=== PATIENT | male | born 1950 | race Hispanic/Latino ===

== ENCOUNTER 2018-10-11 11:38 | Emergency (ER) | payer MEDICARE, OTHER ==
[2018-10-11 11:48] VITALS: RESP 20
--- NOTE | 2018-10-11 12:12 | ED PDOC ---
HPI: SOB/CHF/COPD Time Seen by Provider: 10/11/18 12:00 Chief Complaint (Nursing): Shortness Of Breath History Per: Patient Onset/Duration Of Symptoms: Other (2-3 weeks) Current Symptoms Are (Timing): Still Present Current Respiratory Medications: See Home Med List Severity: Mild Associated Symptoms: Productive Cough. denies: Fever, Chest Pain, Ankle/Leg Swelling Additional Complaint(s): SOB, unresponsive to home asthma meds including inhalers and steroids x 2-3 weeks. Pt had procedure done to left knee approx 3 weeks ago but denies calf pain or swelling. Has scant nonproductive cough but denies fever or chills Past Medical History Vital Signs: Last Vital Signs Temp 98.8 F 10/11/18 11:45 Pulse 65 10/11/18 11:45 Resp 20 10/11/18 11:45 BP 198/104 H 10/11/18 11:45 Pulse Ox 96 10/11/18 11:45 - Medical History PMH: Asthma - Family History Family History: States: Unknown Family Hx - Allergies Allergies/Adverse Reactions: Allergies Allergy/AdvReac Type Severity Reaction Status Date / Time No Known Allergies Allergy Verified 10/11/18 11:49 Review of Systems ROS Statement: Except As Marked, All Systems Reviewed And Found Negative Constitutional: Negative for: Fever Cardiovascular: Negative for: Chest Pain Respiratory: Positive for: Cough, Shortness of Breath Musculoskeletal: Negative for: Leg Pain Physical Exam - Reviewed Nursing Documentation Reviewed: Yes Vital Signs Reviewed: Yes - Physical Exam Appears: Positive for: Non-toxic, No Acute Distress Head Exam: Positive for: ATRAUMATIC, NORMAL INSPECTION, NORMOCEPHALIC Skin: Positive for: Normal Color, Warm, DRY Eye Exam: Positive for: EOMI, Normal appearance, PERRL ENT: Positive for: Normal ENT Inspection Neck: Positive for: Normal, Painless ROM Cardiovascular/Chest: Positive for: Regular Rate, Rhythm Respiratory: Positive for: Rhonchi, Wheezing (Mild exp wheezing left base). Negative for: Respiratory Distress Gastrointestinal/Abdominal: Positive for: Normal Exam, Soft Back: Positive for: Normal Inspection Extremity: Positive for: Normal ROM. Negative for: Calf Tenderness, Swelling Neurologic/Psych: Positive for: Alert, Oriented - Laboratory Results Result Diagrams: 10/11/18 12:45 10/11/18 12:45 - ECG O2 Sat by Pulse Oximetry: 96 Disposition - Clinical Impression Clinical Impression: Asthma exacerbation - Patient ED Disposition Is Patient to be Admitted: No Discussed With Dr.: Noah Berry - Disposition Disposition: Left W/O Treatment Disposition Time: 17:00 Condition: FAIR Forms: [facility] (Chinese)
[2018-10-11] MEDS ORDERED: Albuterol-Ipratrop 3 mg / 0.5 (3 ml) UD IH STA (12:13)
[2018-10-11] MEDS ORDERED: Albuterol-Ipratrop 3 mg / 0.5 (3 ml) UD ONE (12:36)
--- NOTE | 2018-10-11 12:39 | RAD ---
Date of service: 10/11/2018 HISTORY: SOB COMPARISON: 10/03/2018 TECHNIQUE: Chest PA and lateral FINDINGS: LUNGS: No active pulmonary disease. PLEURA: No significant pleural effusion identified. No pneumothorax apparent. CARDIOVASCULAR: There is presence of aortic atherosclerotic calcification on x-ray. Similar mild cardiomegaly no pulmonary vascular congestion. OSSEOUS STRUCTURES: Old right healed rib fractures. Thoracic spondylosis. VISUALIZED UPPER ABDOMEN: Normal. OTHER FINDINGS: None. IMPRESSION: No active disease. No interval pathology noted.
[2018-10-11 13:00] LABS: BASO % 0.1 % (0.0-2.0); EOS % 0.1 % (0.0-4.0); HEMOGLOBIN 14.5 g/dL (12.0-18.0); LYMPH # 1.1 K/uL (1.0-4.3); MEAN CELL VOLUME 92.3 fl (80.0-94.0); MEAN CORPUSCULAR HEMOGLOBIN 29.4 pg (27.0-31.0); MEAN CORPUSCULAR HGB CONC 31.8 g/dL (33.0-37.0); MEAN PLATELET VOLUME 7.7 fl (7.2-11.7); MONO # 0.8 K/uL (0.0-0.8); MONO % 5.5 % (0.0-10.0); NEUT # 11.9 K/uL (1.8-7.0); NEUT % 86.3 % (50.0-75.0); NRBC % 0.1 % (0.0-0.0); PLATELET COUNT 313 K/uL (130-400); RBC 4.94 Mil/uL (4.40-5.90); RED CELL DISTRIBUTION WIDTH 14.9 % (11.5-14.5); WHITE BLOOD COUNT 13.8 K/uL (4.8-10.8)
[2018-10-11 13:22] LABS: ALB/GLOB RATIO 1.3 (1.0-2.1); ALT/SGPT 67 U/L (21-72); AST/SGOT 49 U/L (17-59); BLOOD UREA NITROGEN 18 mg/dl (9-20); CALCIUM 9.2 mg/dL (8.4-10.2); GFR NON-AFRICAN AMERICAN > 60
[2018-10-11 13:59] VITALS: O2SAT 96
[2018-10-11 14:02] LABS: LYMPHOCYTE 8 % (20-50); MONOCYTE 7 % (0-10); NEUTROPHIL 84 % (42-75); REACTIVE LYMPHOCYTES 1 % (0-0); TOTAL CELLS COUNTED 100
[2018-10-11 14:03] LABS: ANISOCYTOSIS SLIGHT; PLATELET CLUMPS PRESENT; PLATELET ESTIMATE NORMAL (NORMAL)
[2018-10-11] MEDS ORDERED: Iodixanol 320 MG/ML 100 ML BOTTLE IV ONE (15:06)
[2018-10-11] MEDS ORDERED: Sodium Chloride 0.9% 50 ML IV ONE (15:06)
[2018-10-11 16:17] VITALS: BP 147/88; PULSE 61; TEMP 98.1
--- NOTE | 2018-10-11 16:43 | CT ---
Date of service: 10/11/2018 PROCEDURE: CT Chest with contrast (Pulmonary Angiogram) HISTORY: SOB COMPARISON: None available. TECHNIQUE: Axial computed tomography images were obtained of the chest in the pulmonary arterial phase of enhancement. Coronal and sagittal reformatted images were created and reviewed. Intravenous contrast dose: 85 cc Visipaque. Mean Hounsfield value in the main pulmonary artery: 215.73 Radiation dose: Total exam DLP = 372.92 mGy-cm. This CT exam was performed using one or more of the following dose reduction techniques: Automated exposure control, adjustment of the mA and/or kV according to patient size, and/or use of iterative reconstruction technique. FINDINGS: PULMONARY ARTERIES: Unremarkable. No pulmonary embolism. AORTA: No acute findings. No thoracic aortic aneurysm. Atherosclerotic calcification and mural plaque present. Findings are seen throughout the aorta LUNGS: Unremarkable. No nodule, mass or pulmonary consolidation. PLEURAL SPACES: Unremarkable. No effusion or pneumothorax. HEART: Unremarkable. No cardiomegaly. No significant pericardial effusion. LYMPH NODES: No lymphadenopathy. BONES, CHEST WALL: Unremarkable. No fracture or destructive lesion contiguous healed presumed posttraumatic right rib fractures. OTHER FINDINGS: Unremarkable. IMPRESSION: Unremarkable CT pulmonary angiogram. No pulmonary embolus.Limitations of the current examination: Qualitative and quantitative analysis of opacification of pulmonary arterial system precludes assessment beyond the segmental branch levels. Additional benign and/or incidental findings described above.
== END 2018-10-11 17:00 | disposition left against medical advice (07) ==
LOC: H.ER 11:38
DX: J45.901 Unspecified asthma with (acute) exacerbation (principal)
CPT/HCPCS: 71046; 71275; 80053; 85025; 85378; 94640; 99285; Q9967